=== PATIENT | male | born 1950 | race Caucasian/White ===

== ENCOUNTER → 2020-06-16 | Outpatient (CLI) | payer OTHER ==
--- NOTE | 2020-06-16 12:02 | Diagnostic Imaging Report ---
EXAM: US ABDOMEN COMPLETE DATE: 06/16/2020 9:09 AM INDICATION: ^[id number] ^ABDOMEN PAIN COMPARISON: None TECHNIQUE: Transverse and longitudinal moses scale and color doppler sonographic images of the abdomen were obtained. FINDINGS: LIVER 14.9 cm in the right midclavicular line. Normal echogenicity of the liver with normal contour, no masses. SPLEEN 9.0 cm in maximum diameter. Normal echogenicity, no masses. GALLBLADDER No gallbladder wall thickening, distension, stone, or pericholecystic fluid. Negative reported sonographic Lin's sign. BILE DUCTS No intra nor extra-hepatic biliary dilation. Common bile duct measures 0.2cm PANCREAS: Visualized portions are normal. RIGHT KIDNEY: 9.0 cm Echogenicity: Normal Collecting System: No hydronephrosis Stones: None Cyst/Mass: Multiple anechoic cysts are identified with the largest in the upper pole measuring up to 5.2 cm. LEFT KIDNEY: 11.2 cm Echogenicity: Normal Collecting System: No hydronephrosis Stones: None Cyst/Mass: Multiple anechoic cysts are identified with the largest in the midpole measuring up to 4.3 cm. VESSELS: Aorta: Visualized portions are within normal size limits Inferior Vena Cava: Visualized portions are normal Main Portal Vein: 0.8 cm, normal size with hepatopetal flow. FREE FLUID: None IMPRESSION: 1. Bilateral renal cysts are identified. No suspicious features by ultrasound technique. Consider renal protocol CT or MRI for further evaluation. 2. Negative for hydronephrosis or perinephric fluid collection. 3. Negative for cholelithiasis or biliary dilatation. Signed by: Chase Valdes MD on 06/16/2020 11:59 AM
== END ==
LOC: US 08:35
PROVIDERS: ATTEND Family Medicine
DX: N28.1 Cyst of kidney, acquired (principal); R10.9 Unspecified abdominal pain
CPT/HCPCS: 76700

== ENCOUNTER → 2022-08-22 | Outpatient (CLI) | payer MEDICARE | LOC: US 08:51 | PROVIDERS: ATTEND Family Medicine | DX: N28.1 Cyst of kidney, acquired (principal); K76.89 Other specified diseases of liver | CPT/HCPCS: 76700 ==